=== PATIENT | female | born 1990 | race Caucasian/White ===

== ENCOUNTER → 2017-08-15 | Outpatient (CLI) | payer OTHER ==
[~2017-08-15] MED LIST: ALBU90OI INH; AMOXICILLIN; CEPH500 PO; CIPR500 PO; FLUO10 PO; HYDACE5; HYDACE5 PO; IBUP600 PO; Mucinex600 MG PO; NAPR500; NAPR550 PO; Naprosyn500 MG PO; OLAN10 PO; OLAN5 PO; ONDA4ODT MM; OXYACE5T PO; PENVK500 PO; PROM25 PO; Percocet 5-3251 EACH PO; Prazosin HCl1 MG PO; RXNAPNA550 PO; TOBDEXOPSU OP; TRAM50 PO; Zithromax250 MG PO
== END ==
LOC: LAB 18:30 → LAB SHORT 18:30
DX: Z34.03 Encounter for supervision of normal first pregnancy, third trimester (principal)
CPT/HCPCS: 87081; 87653

== ENCOUNTER 2017-09-14 07:20 | Inpatient (IN) | payer OTHER ==
[~2017-09-14] VITALS: Ht 165.1 cm; Wt 64.4 kg
[2017-09-14] MEDS ORDERED: ONDA4ODT MM (07:42)
[2017-09-14 08:16] LABS: BASOPHILS ABSOLUTE AUTO 0.07 K/mm3 (0.00-0.23); BASOPHILS PERCENT AUTO 0 % (0-2); EOSINOPHILS ABSOLUTE AUTO 0.03 K/mm3 (0.00-0.68); EOSINOPHILS PERCENT AUTO 0 % (0-6); Hematocrit 39.3 % (33.0-51.0); Hemoglobin 13.4 g/dL (11.5-16.0); IMMATURE GRAN PERCENT AUTO 1 % (0-1); LYMPHOCYTES ABSOLUTE AUTO 2.54 K/mm3 (0.84-5.20); LYMPHOCYTES PERCENT AUTO 10 % (21-46); MONOCYTES ABSOLUTE AUTO 1.35 K/mm3 (0.16-1.47); MONOCYTES PERCENT AUTO 5 % (4-13); Mean Corpuscular HGB 29.3 pg (26.0-34.0); Mean Corpuscular HGB Conc 34.1 g/dL (31.5-36.5); Mean Corpuscular Volume 86 fL (80-100); Mean Platelet Volume 11.2 fL (9.1-12.4); NEUTROPHILS ABSOLUTE AUTO 20.63 K/mm3 (1.96-9.15); NEUTROPHILS PERCENT AUTO 83 % (41-73); Platelet Count 264 K/mm3 (150-400); RDW Standard Deviation 40.5 fL (35.1-46.3); Red Blood Cell Count 4.58 M/mm3 (3.80-5.20); White Blood Cell Count 24.82 K/mm3 (4.00-11.30)
[2017-09-14 10:52] LABS: U Amphetamine Screen Not Detected; U Barbituate Screen Not Detected; U Benzodiazapine Screen Not Detected; U Buprenorphine Screen Not Detected; U Cannabinoids Screen Not Detected; U Cocaine Screen Not Detected; U Methadone Screen Not Detected; U Methamphetamine Screen Not Detected; U Opiates Screen Not Detected; U Phencyclidine Screen Not Detected
[2017-09-14 10:53] LABS: U Oxycodone Screen Not Detected; U Propoxyphene Screen Not Detected
[2017-09-14 22:17] LABS: Hematocrit 35.4 % (33.0-51.0); Mean Corpuscular HGB 29.3 pg (26.0-34.0); Mean Corpuscular HGB Conc 33.9 g/dL (31.5-36.5); Mean Corpuscular Volume 86 fL (80-100); Mean Platelet Volume 11.2 fL (9.1-12.4); Platelet Count 246 K/mm3 (150-400); RDW Coefficient Variation 12.9 % (11.7-14.2); RDW Standard Deviation 40.4 fL (35.1-46.3); White Blood Cell Count 25.32 K/mm3 (4.00-11.30)
[2017-09-14 22:35] LABS: Alanine Aminotransfer (ALT/SGP 48 U/L (12-78); Albumin, Blood 2.5 g/dL (3.4-5.0); Albumin/Globulin Ratio 0.6 (0.8-1.8); Alk Phos 249 U/L (50-136); Anion Gap 9 mmol/L (6-16); Aspartate Aminotrans (AST/SGOT 38 U/L (12-37); Blood Urea Nitrogen 11 mg/dL (8-24); Bun/Creatinine Ratio 16.4 (12.0-20.0); CO2, Blood 23 mmol/L (21-32); Calcium, Blood 8.4 mg/dL (8.5-10.1); Chloride, Blood 104 mmol/L (98-108); Creatinine, Blood 0.67 mg/dL (0.40-1.00); Glomerular Filtration Rate >60 (60-); Glucose, Blood 82 mg/dL (70-99); Potassium, Blood 4.2 mmol/L (3.5-5.5); Sodium, Blood 136 mmol/L (136-145); Total Protein, Blood 6.5 g/dL (6.4-8.2)
[2017-09-15 05:22] LABS: BASOPHILS ABSOLUTE AUTO 0.06 K/mm3 (0.00-0.23); BASOPHILS PERCENT AUTO 0 % (0-2); EOSINOPHILS PERCENT AUTO 0 % (0-6); Hematocrit 34.8 % (33.0-51.0); Hemoglobin 11.7 g/dL (11.5-16.0); IMMATURE GRAN ABSOLUTE AUTO 0.31 K/mm3 (0.00-0.10); IMMATURE GRAN PERCENT AUTO 1 % (0-1); LYMPHOCYTES ABSOLUTE AUTO 3.18 K/mm3 (0.84-5.20); LYMPHOCYTES PERCENT AUTO 14 % (21-46); MONOCYTES ABSOLUTE AUTO 1.72 K/mm3 (0.16-1.47); MONOCYTES PERCENT AUTO 7 % (4-13); Mean Corpuscular HGB 28.8 pg (26.0-34.0); Mean Corpuscular HGB Conc 33.6 g/dL (31.5-36.5); Mean Corpuscular Volume 86 fL (80-100); Mean Platelet Volume 10.9 fL (9.1-12.4); NEUTROPHILS ABSOLUTE AUTO 17.87 K/mm3 (1.96-9.15); NEUTROPHILS PERCENT AUTO 77 % (41-73); Platelet Count 226 K/mm3 (150-400); RDW Coefficient Variation 12.9 % (11.7-14.2); RDW Standard Deviation 40.1 fL (35.1-46.3); Red Blood Cell Count 4.06 M/mm3 (3.80-5.20); White Blood Cell Count 23.24 K/mm3 (4.00-11.30)
== END 2017-09-15 15:24 | disposition home or self-care (01) | DRG 774 ==
LOC: BC 07:20 → OBS 07:20 → BC 07:31
PROVIDERS: Nurse Practitioner Obstetrics & Gynecology
PROC: 10E0XZZ Delivery of Products of Conception, External Approach (ICD-10-PCS; principal; 2017-09-14)
PROC: 00HU33Z Insertion of Infusion Device into Spinal Canal, Percutaneous Approach (ICD-10-PCS; 2017-09-14)
PROC: 3E0R3BZ Introduction of Anesthetic Agent into Spinal Canal, Percutaneous Approach (ICD-10-PCS; 2017-09-14)
DX: O42.02 Full-term premature rupture of membranes, onset of labor within 24 hours of rupture (principal); O98.42 Viral hepatitis complicating childbirth; O72.1 Other immediate postpartum hemorrhage; B19.20 Unspecified viral hepatitis C without hepatic coma; O67.8 Other intrapartum hemorrhage; O99.334 Smoking (tobacco) complicating childbirth; F17.210 Nicotine dependence, cigarettes, uncomplicated; Z3A.40 40 weeks gestation of pregnancy; Z37.0 Single live birth; Z88.0 Allergy status to penicillin
CPT/HCPCS: 36415; 51702; 80053; 85025; 85027; J1885; J2210; J2590; J7120

== ENCOUNTER → 2017-10-03 | Outpatient (CLI) | payer OTHER | LOC: LAB 08:45 → LAB SHORT 08:45 | DX: N89.8 Other specified noninflammatory disorders of vagina (principal) | CPT/HCPCS: 87070; 87205 ==

== ENCOUNTER 2018-04-10 12:09 | Emergency (ER) | payer OTHER ==
[~2018-04-10] VITALS: Ht 165.1 cm; Wt 56.7 kg
[2018-04-10 12:29] LABS: Source, Urine Clean Catch
[2018-04-10 12:37] LABS: Appearance, Urine Clear (Clear); Bilirubin, Urine Neg (Neg); Blood, Urine Neg (Neg); Color, Urine Yellow (P-Yellow); Glucose Qualitative, Urine Neg (Neg); Ketones, Urine Neg (Neg); Leukocyte Esterase, Urine Neg (Neg); Nitrite, Urine Neg (Neg); Protein, Urine Neg (Neg); Specific Gravity, Urine 1.005 (1.003-1.022); Urobilinogen, Urine NORM (Normal)
[2018-04-10] MEDS ORDERED: Macrobid 100 M100 MG PO (14:32)
[2018-04-10] MEDS ORDERED: Norco 5-325 Ta1 EACH PO (14:32)
[2018-04-10] MEDS ORDERED: ONDA4ODT MM (14:32)
== END 2018-04-10 14:41 | disposition home or self-care (01) ==
LOC: ER 12:09
PROVIDERS: Emergency Medicine
DX: R10.9 Unspecified abdominal pain (principal); Z88.0 Allergy status to penicillin; F17.210 Nicotine dependence, cigarettes, uncomplicated
CPT/HCPCS: 81003; 81025; 99283

== ENCOUNTER 2022-09-05 22:37 | Emergency (ER) | payer OTHER ==
[~2022-09-05] VITALS: Ht 165.1 cm; Wt 62.1 kg
[~2022-09-05 22:37] MED LIST changes: +Macrobid 100 M100 MG PO; +Norco 5-325 Ta1 EACH PO
[2022-09-06 00:30] VITALS: BP 135/94
== END 2022-09-06 00:30 | disposition home or self-care (01) ==
LOC: ER 22:37
DX: L03.116 Cellulitis of left lower limb (principal); Z88.0 Allergy status to penicillin
CPT/HCPCS: 93971; 99283-25

== ENCOUNTER 2025-02-03 11:03 | Emergency (ER) | payer OTHER ==
[~2025-02-03] VITALS: Ht 172.7 cm; Wt 68.0 kg
[2025-02-03 11:20] VITALS: BP 134/85
== END 2025-02-03 11:53 | disposition home or self-care (01) ==
LOC: ER 11:03
DX: Z76.89 Persons encountering health services in other specified circumstances (principal); O99.330 Smoking (tobacco) complicating pregnancy, unspecified trimester; F17.210 Nicotine dependence, cigarettes, uncomplicated; Z3A.00 Weeks of gestation of pregnancy not specified; Z88.0 Allergy status to penicillin
CPT/HCPCS: 99281; A9270

== ENCOUNTER 2025-02-05 09:29 | Emergency (ER) | payer OTHER ==
[~2025-02-05] VITALS: Ht 165.1 cm; Wt 58.1 kg
[2025-02-05 09:58] VITALS: BP 139/93
== END 2025-02-05 11:58 | disposition home or self-care (01) ==
LOC: ER 09:29
DX: O99.323 Drug use complicating pregnancy, third trimester (principal); F11.90 Opioid use, unspecified, uncomplicated; Z76.0 Encounter for issue of repeat prescription; F17.210 Nicotine dependence, cigarettes, uncomplicated; Z88.0 Allergy status to penicillin
CPT/HCPCS: 99281; A9270

== ENCOUNTER 2025-02-06 10:58 | Emergency (ER) | payer OTHER ==
[~2025-02-06] VITALS: Ht 165.1 cm; Wt 58.1 kg
[2025-02-06 11:36] VITALS: BP 136/82
== END 2025-02-06 11:47 | disposition home or self-care (01) ==
LOC: ER 10:58
DX: O99.321 Drug use complicating pregnancy, first trimester (principal); F11.90 Opioid use, unspecified, uncomplicated; Z02.89 Encounter for other administrative examinations; Z59.89 Other problems related to housing and economic circumstances; F17.210 Nicotine dependence, cigarettes, uncomplicated
CPT/HCPCS: 99281; A9270

== ENCOUNTER 2025-02-08 09:59 | Emergency (ER) | payer OTHER ==
[~2025-02-08] VITALS: Ht 162.6 cm; Wt 58.1 kg
[2025-02-08 10:07] VITALS: BP 133/93
[2025-02-08] MEDS ORDERED: PRENATAL TABLE1 EAC2 PO (10:09)
[2025-02-08] MEDS ORDERED: METH40 (10:09)
== END 2025-02-08 11:30 | disposition home or self-care (01) ==
LOC: ER 09:59
DX: Z76.89 Persons encountering health services in other specified circumstances (principal); O99.330 Smoking (tobacco) complicating pregnancy, unspecified trimester; F17.210 Nicotine dependence, cigarettes, uncomplicated; Z3A.00 Weeks of gestation of pregnancy not specified
CPT/HCPCS: 99281; A9270